=== PATIENT | female | born 1980 | race Caucasian/White ===

== ENCOUNTER 2016-09-27 01:39 | Emergency (ER) | payer MEDICAID ==
[~2016-09-27] VITALS: Ht 182.9 cm; Wt 74.1 kg
[~2016-09-27 01:39] MED LIST: ACYCLOVIR800 MG PO; ADVIL 200MG TA200 MG PO; ALBUTEROL0.09 MG/A4 IH; ALBUTEROL0.83 MG/ML IH; ALVESCO160 MCG/Ac IH; BACTRIM DS 8001 TAB PO; CEFTIN 250250 MG/TAB PO; CIPRO 500MG TA500 MG PO; DOXYCYCLINE 10100 MG PO; FLEXERIL 1010 MG/TAB PO; IBUPROFEN; LEVAQUIN 750MG750 M1 PO; LORTAB 5/500 501 TAB PO; LORTAB 7.5/5001 TAB; MACROBID 1100 MG/CAP PO; MASON NATURAL2000 IU PO; METRONIDAZOLE500 MG PO; MOTRIN 800800 MG/TAB PO; NAPROSYN PO; NAPROSYN500 MG PO; NO HOME MEDICATIONS; NORCO 325 MG-51 TAB; NORCO 325 MG-51 TAB PO; NORCO 325 MG-7.1 TAB PO; OMNICEF 300MG300 MG PO; PEPCID 20MG TAB20 MG PO; PERCOCET 325 MG1 TA2 PO; PERCOCET 5/321 UDTAB PO; PHENERGAN 25 TA25 MG PO; PREDNISONE10 MG PO; PRENATAL1 TA2; PRENATAL1 TA3 PO; PROAIR HFA0.09 MG/AC IH; PROTONIX 40MG T40 MG PO; PROVENTIL0.09 MG/A1 IH; PYRIDIUM 100MG100 MG PO; PYRIDIUM200 M1 PO; ROBAXIN 50500 MG/TAB PO; THEO-24 20200 MG/CAP PO; TUSS PO; TYLENOL 500MG500 MG; TYLENOL 500MG500 MG PO; ULTRAM 50MG TAB50 MG PO; VENTOLIN0.09 MG IH; VICODIN 5/5001 UDTAB PO; VITAMIN D3 IM; ZITHROMAX 250M250 MG PO; ZITHROMAX Z PA250 MG PO; ZOFRAN 4MG T4 MG/TAB PO; ZOFRAN4 MG PO
[2016-09-27 01:42] VITALS: TEMP 97.7
[2016-09-27 02:08] LABS: BASO # 0.1 (0.0-0.2); EOS # 0.3 (0.0-0.7); EOS % 2.3 % (0-4.0); GRAN # 9.5 (1.4-6.5); GRAN % 69.4 % (42.2-75.2); HEMOGLOBIN 13.1 g/dl (12.5-16.0); LYMPH # 2.7 (1.2-3.4); LYMPH % 19.8 % (20.0-51.0); MEAN CELL VOLUME 91 fl (80.0-100.0); MEAN CORPUSCULAR HEMOGLOBIN 31 pg (27.0-31.0); MEAN CORPUSCULAR HGB CONC 34 g/dl (33.0-37.0); MEAN PLATELET VOLUME 10.9 fl (7.4-10.4); MONO % 7.2 % (1.7-9.3); PLATELET COUNT 234 K/mm3 (130-400); RED BLOOD COUNT 4.27 M/mm3 (4.10-5.30); REDCELL DISTRIBUTION WIDTH-CV 12.5 % (11.5-14.5); WHITE BLOOD COUNT 13.7 K/mm3 (4.8-10.8)
[2016-09-27 02:19] LABS: ADJUSTED CALCIUM 8.6 mg/dL (8.4-10.2); ALANINE AMINOTRANSFERASE 21 U/L (9-52); ALBUMIN 4.5 gm/dL (3.5-5.0); ALKALINE PHOSPHATASE 103 U/L (50-136); ANION GAP 16 mmol/L (7-16); BILIRUBIN,TOTAL 0.5 mg/dL (0.0-1.0); BLOOD UREA NITROGEN 15 mg/dL (7-17); C-REACTIVE PROTEIN < 0.5 mg/dL (0.0-0.9); CARBON DIOXIDE 17 mmol/L (22-30); CHLORIDE 106 mmol/L (98-107); CREATININE, serum 0.72 mg/dL (0.52-1.25); GLUCOSE 77 mg/dL (74-106); LIPASE 97 U/L (23-300); POTASSIUM 3.3 mmol/L (3.4-5.0); SODIUM 139 mmol/L (137-145); TOTAL PROTEIN 7.3 gm/dL (6.4-8.2)
[2016-09-27] MEDS ORDERED: VITAMIN D 1001000 IU PO (02:39)
[2016-09-27 02:44] LABS: PH 5 (5-8); SQUAMOUS EPITHELIAL 0-2 /hpf; URINE APPEARANCE Clear; URINE BACTERIA Rare /hpf; URINE BILIRUBIN Negative (NEGATIVE); URINE BLOOD 2+ (NEGATIVE); URINE COLOR Yellow; URINE GLUCOSE Negative (NEGATIVE); URINE KETONE Negative (NEGATIVE); URINE RBC 0-2 /hpf; URINE UROBILINOGEN Negative (NEGATIVE); URINE WBC 0-2 /hpf
[2016-09-27] MEDS ORDERED: MACROBID 1100 MG/CAP PO (04:19)
[2016-09-27 04:41] VITALS: BP 110/60; PULSE 76
== END 2016-09-27 04:43 | disposition home or self-care (01) ==
LOC: COL.ER 01:39
PROVIDERS: Emergency Medicine; Nurse Practitioner
DX: R33.9 Retention of urine, unspecified (principal); R10.32 Left lower quadrant pain; J45.909 Unspecified asthma, uncomplicated; F17.210 Nicotine dependence, cigarettes, uncomplicated; Z85.41 Personal history of malignant neoplasm of cervix uteri; Z85.118 Personal history of other malignant neoplasm of bronchus and lung; Z90.710 Acquired absence of both cervix and uterus; Z98.890 Other specified postprocedural states; Z98.51 Tubal ligation status
CPT/HCPCS: A4315; J1170; J7030; Q9967

== ENCOUNTER → 2017-07-01 | Outpatient (CLI) | payer MEDICAID ==
[~2017-07-01] MED LIST changes: +VITAMIN D 1001000 IU PO
== END ==
LOC: COL.RAD 07:25
DX: R19.7 Diarrhea, unspecified (principal); R11.0 Nausea; K29.80 Duodenitis without bleeding; K25.9 Gastric ulcer, unspecified as acute or chronic, without hemorrhage or perforation; R14.0 Abdominal distension (gaseous); R10.9 Unspecified abdominal pain; R14.2 Eructation
CPT/HCPCS: A9541

== ENCOUNTER 2018-03-01 00:57 | Emergency (ER) | payer MEDICAID ==
[~2018-03-01] VITALS: Ht 182.9 cm; Wt 79.5 kg
[2018-03-01 01:05] VITALS: TEMP 98.8
[2018-03-01 04:14] VITALS: BP 116/63; PULSE 69
== END 2018-03-01 04:16 | disposition home or self-care (01) ==
LOC: COL.ER 00:57
DX: S20.212A Contusion of left front wall of thorax, initial encounter (principal); R10.12 Left upper quadrant pain; J44.9 Chronic obstructive pulmonary disease, unspecified; F17.210 Nicotine dependence, cigarettes, uncomplicated; Z90.710 Acquired absence of both cervix and uterus; W50.0XXA Accidental hit or strike by another person, initial encounter
CPT/HCPCS: J1885; J7030; Q9967

== ENCOUNTER → 2018-05-18 | Outpatient (CLI) | payer MEDICAID | LOC: COL.RAD 13:43 | DX: M25.511 Pain in right shoulder (principal) | CPT/HCPCS: A9585; Q9967 ==